=== PATIENT | female | born 1950 | race Caucasian/White ===

== ENCOUNTER 2016-08-11 14:01 | Emergency (ER) | payer MEDICARE, OTHER ==
[~2016-08-11 14:01] MED LIST: ASPIR 8181 MG; MEDROL4 MG/DOSE- PO; MULTIVITAMIN1 TAB; NORCO 5/325 TAB1 TAB PO; PERCOCET 5/3251 TAB PO
[2016-08-11] MEDS ORDERED: MULTIVITAMINS1 EAC6 PO (14:26)
== END 2016-08-11 16:39 ==
LOC: EDMED 14:01
DX: S00.83XA Contusion of other part of head, initial encounter (principal); S20.211A Contusion of right front wall of thorax, initial encounter; Z23 Encounter for immunization; W01.0XXA Fall on same level from slipping, tripping and stumbling without subsequent striking against object, initial encounter; Y92.019 Unspecified place in single-family (private) house as the place of occurrence of the external cause